=== PATIENT | female | born 1950 | race Caucasian/White ===

== ENCOUNTER 2016-03-08 16:48 | Observation (INO) | payer MEDICARE, MEDICAID ==
[~2016-03-08] VITALS: Ht 165.1 cm; Wt 72.8 kg
[2016-03-08] VITALS (11 sets, daily range): BP systolic 189–238; RESP 16; TEMP 97.9; Ht 165.1 cm; Wt 72.8 kg
[2016-03-08] MEDS ORDERED: DEXTROSE 50% 50 ML ONE (18:28)
[2016-03-08] MEDS ORDERED: humuLIN REG INSULIN ONE (18:28)
[2016-03-08] MEDS ORDERED: NITROGLYCERIN/D5W 250 ML IV ONE (18:38)
[2016-03-08] MEDS ORDERED: SODIUM CHLORIDE 0.9% 1,000 ML ONE (18:40)
[2016-03-08] MEDS ORDERED: CALCIUM GLUCONATE 1,000 MG in SODIUM CHLORIDE 0.9% 100 ML IV ONE (19:15)
[2016-03-08] MEDS: NITROGLYCERIN 50 MG/250 ML 250 ML IV SCH (20:45)
[2016-03-08] MEDS ORDERED: DEXTROSE 50% SYRINGE 50 ML IV PRN (21:00)
[2016-03-08] MEDS ORDERED: SALINE FLUSH 10 ML FLUSH PRN (21:00)
[2016-03-08] MEDS ORDERED: GLUCAGON 1 MG VIAL IM PRN (21:00)
[2016-03-08] MEDS ORDERED: Atorvastatin 20 MG TAB PO SCH (21:00)
[2016-03-08] MEDS ORDERED: QUETIAPINE XR 300 MG TAB PO SCH (21:00)
[2016-03-08] MEDS ORDERED: ONDANSETRON 4 MG VIAL IV PUSH PRN (21:00)
[2016-03-08] MEDS ORDERED: Furosemide 40 MG/4 ML VIAL IV ONE (21:00)
[2016-03-08] MEDS ORDERED: SODIUM CHLORIDE 0.9% 1,000 ML IV PRN ×2 (22:30)
[2016-03-08] MEDS ORDERED: ONDANSETRON 4 MG VIAL IV PRN ×2 (22:30)
[2016-03-08] MEDS ORDERED: SODIUM CHLORIDE 0.9% 1,000 ML IV SCH ×2 (22:30)
[2016-03-08] MEDS ORDERED: ALBUMIN HUMAN 25GM (25%) 100 ML IV PRN (22:30)
[2016-03-08] MEDS: clonazePAM 0.5 MG TAB PO SCH (23:03)
[2016-03-08] MEDS: DULoxetine 30 MG CAP PO SCH (23:04)
[2016-03-08] MEDS: CARVEDILOL 25 MG TAB PO SCH (23:04)
[2016-03-08] MEDS: amLODIPine 5 MG TAB PO SCH (23:04)
[2016-03-08] MEDS: SALINE FLUSH 10 ML FLUSH SCH (23:04)
[2016-03-09] VITALS (17 sets, daily range): BP systolic 87–204; RESP 16–20; TEMP 97–98.2
[2016-03-09] MEDS: ALBUMIN HUMAN 25GM (25%) 100 ML IV PRN ×2 (02:17→02:47)
[2016-03-09] MEDS: NITROGLYCERIN 50 MG/250 ML 250 ML IV SCH (02:45)
[2016-03-09] MEDS ORDERED: SODIUM CHLORIDE 0.9% FLUSH BAG 500 ML IV SCH (06:00)
[2016-03-09] MEDS ORDERED: LEVOTHYROXINE 0.05 MG TAB PO SCH (07:00)
[2016-03-09] MEDS: SALINE FLUSH 10 ML FLUSH SCH (08:31)
[2016-03-09] MEDS: CALCIUM ACETATE 667MG CAP PO SCH ×3 (08:32→17:26)
[2016-03-09] MEDS: DULoxetine 30 MG CAP PO SCH (08:32)
[2016-03-09] MEDS: clonazePAM 0.5 MG TAB PO SCH (08:32)
[2016-03-09] MEDS: CARVEDILOL 25 MG TAB PO SCH (08:32)
[2016-03-09] MEDS: amLODIPine 5 MG TAB PO SCH (08:32)
[2016-03-09] MEDS ORDERED: Furosemide 40 MG TAB PO SCH (09:00)
[2016-03-09] MEDS ORDERED: ASPIRIN EC 81 MG TAB PO SCH (09:00)
[2016-03-09] MEDS ORDERED: ACETAMINOPHEN 325 MG TAB PO PRN (16:30)
[2016-03-15] MEDS ORDERED: CLONIDINE TRANSDERM SCH (09:00)
== END 2016-03-09 18:01 | disposition home or self-care (01) ==
LOC: ENRESERVTM → ENRESERVDT → ER 16:48 → ENPENDDIS 20:59 → EMR 20:59 → PCU2 21:50
PROVIDERS: ADMIT Family Medicine; ATTEND Family Medicine
CPT/HCPCS: 71010 ×2; 80053 ×2; 82947 ×2; 84132 ×2; 85025 ×2; 93005 ×2; 94799; 96365 ×2; 96366 ×2; 96375 ×2; 97799; 99219; 99285; G0378; J7050; P9047

== ENCOUNTER 2016-03-14 14:33 | Emergency (ER) | payer MEDICAID, MEDICARE ==
[2016-03-14] MEDS ORDERED: cloNIDine 0.1 MG TAB ONE ×2 (15:02→16:28)
[2016-03-14] MEDS ORDERED: LABETALOL 100 MG/20 ML VIAL ONE (15:02)
== END 2016-03-14 20:11 ==
LOC: ER 14:33
CPT/HCPCS: 36415; 71010; 80053; 82553; 84484; 85025; 85610; 85730; 93005; 96374

== ENCOUNTER 2016-04-02 21:20 | Inpatient (IN) | payer MEDICARE, MEDICAID ==
[~2016-04-02] VITALS: Ht 162.6 cm; Wt 72.9 kg
[2016-04-02] MEDS ORDERED: KETOROLAC 30 MG/ML VIAL ONE (22:28)
[2016-04-03] VITALS (7 sets, daily range): BP systolic 123–232; RESP 16–20; TEMP 97.3–98.3
[2016-04-03] MEDS ORDERED: NEB-ALBUTEROL 2.5 MG/3 ML INH ONE (00:12)
[2016-04-03] MEDS ORDERED: humuLIN REG INSULIN ONE (00:22)
[2016-04-03] MEDS ORDERED: CALCIUM CHLORIDE 100 MG/ML SYR ONE (00:23)
[2016-04-03] MEDS ORDERED: DEXTROSE 50% 50 ML ONE (00:23)
[2016-04-03] MEDS ORDERED: SALINE FLUSH 10 ML FLUSH PRN (01:15)
[2016-04-03] MEDS ORDERED: BISACODYL EC 5 MG TAB PO PRN (01:15)
[2016-04-03] MEDS ORDERED: BISACODYL 10 MG SUPP RECTAL PRN (01:15)
[2016-04-03] MEDS ORDERED: MAG HYDROX 30 ML UDC PO PRN (01:15)
[2016-04-03] MEDS ORDERED: ACETAMINOPHEN 325 MG TAB PO PRN (01:15)
[2016-04-03] MEDS ORDERED: ALU/MAG/SIM 30 ML UDC PO PRN (01:15)
[2016-04-03] MEDS ORDERED: GLUCAGON 1 MG VIAL IM PRN (01:30)
[2016-04-03] MEDS: DEXTROSE 50% SYRINGE 50 ML IV PRN ×2 (03:23→03:32)
[2016-04-03] MEDS: SODIUM CHLORIDE 0.9% FLUSH BAG 500 ML IV SCH (07:29)
[2016-04-03] MEDS: FAMOTIDINE 20 MG TAB PO SCH ×2 (08:49→20:45)
[2016-04-03] MEDS: SALINE FLUSH 10 ML FLUSH SCH ×2 (08:49→20:45)
[2016-04-03] MEDS: ENOXAPARIN 30 MG/0.3 ML SYR SUBQ SCH (08:50)
[2016-04-03] MEDS ORDERED: clonazePAM 0.5 MG TAB PO SCH (12:30)
[2016-04-03] MEDS ORDERED: DUONEB INH PRN (12:30)
[2016-04-03] MEDS ORDERED: NEB-ALBUTEROL 2.5 MG/3 ML INH PRN (12:30)
[2016-04-03] MEDS ORDERED: ALPRAZOLAM 0.25 MG TAB PO PRN (12:30)
[2016-04-03] MEDS ORDERED: ONDANSETRON 4 MG TAB PO PRN (12:30)
[2016-04-03] MEDS: Furosemide 40 MG TAB PO SCH (13:33)
[2016-04-03] MEDS: ASPIRIN EC 81 MG TAB PO SCH (13:33)
[2016-04-03] MEDS: CHOLECALCIFEROL 5,000 UNITS CAP PO SCH (13:33)
[2016-04-03] MEDS: VORTIOXETINE 5 MG PO SCH (13:33)
[2016-04-03] MEDS: amLODIPine 5 MG TAB PO SCH ×2 (13:33→20:45)
[2016-04-03] MEDS ORDERED: CALCIUM ACETATE 667MG CAP PO SCH ×2 (17:00→21:00)
[2016-04-03] MEDS: CALCIUM ACETATE 667MG CAP PO SCH (17:24)
[2016-04-03] MEDS ORDERED: AZITHROMYCIN 500 MG in SODIUM CHLORIDE 0.9% 250 ML IV ONE (19:25)
[2016-04-03] MEDS: CARVEDILOL 25 MG TAB PO SCH (20:45)
[2016-04-03] MEDS: FAMOTIDINE 40 MG TAB PO SCH (20:45)
[2016-04-03] MEDS: QUETIAPINE XR 300 MG TAB PO SCH (20:45)
[2016-04-03] MEDS: DULoxetine 30 MG CAP PO SCH (20:45)
[2016-04-03] MEDS: Atorvastatin 20 MG TAB PO SCH (20:45)
[2016-04-03] MEDS: CEFTRIAXONE 1 GM in SODIUM CHLORIDE 0.9% 50 ML IV SCH (20:47)
[2016-04-03] MEDS ORDERED: DULoxetine 30 MG CAP PO SCH (21:00)
[2016-04-04 03:36] VITALS: BP_SYST 143; RESP 16; TEMP 98.2
[2016-04-04] MEDS: LEVOTHYROXINE 0.05 MG TAB PO SCH (06:05)
[2016-04-04] MEDS: SODIUM CHLORIDE 0.9% FLUSH BAG 500 ML IV SCH (06:06)
[2016-04-04 07:29] VITALS: BP_SYST 165; RESP 18; TEMP 98
[2016-04-04] MEDS: CARVEDILOL 25 MG TAB PO SCH ×2 (08:21→20:08)
[2016-04-04] MEDS: ASPIRIN EC 81 MG TAB PO SCH (08:21)
[2016-04-04] MEDS: DULoxetine 30 MG CAP PO SCH (08:22)
[2016-04-04] MEDS: amLODIPine 5 MG TAB PO SCH ×2 (08:22→20:09)
[2016-04-04] MEDS: CALCIUM ACETATE 667MG CAP PO SCH ×3 (08:22→17:16)
[2016-04-04] MEDS: FAMOTIDINE 20 MG TAB PO SCH ×2 (08:22→21:00)
[2016-04-04] MEDS: Furosemide 40 MG TAB PO SCH (08:22)
[2016-04-04] MEDS: VORTIOXETINE 5 MG PO SCH (08:22)
[2016-04-04] MEDS: CHOLECALCIFEROL 5,000 UNITS CAP PO SCH (08:22)
[2016-04-04] MEDS: clonazePAM 0.5 MG TAB PO SCH (08:23)
[2016-04-04] MEDS: CEFTRIAXONE 1 GM in SODIUM CHLORIDE 0.9% 50 ML IV SCH (08:23)
[2016-04-04] MEDS: SALINE FLUSH 10 ML FLUSH SCH ×2 (08:23→20:07)
[2016-04-04] MEDS: ENOXAPARIN 30 MG/0.3 ML SYR SUBQ SCH (08:23)
[2016-04-04] MEDS ORDERED: clonazePAM 0.5 MG TAB PO SCH (09:00)
[2016-04-04] MEDS: AZITHROMYCIN 250 MG in SODIUM CHLORIDE 0.9% 250 ML IV SCH (09:04)
[2016-04-04] MEDS ORDERED: ALBUMIN HUMAN 25GM (25%) 100 ML IV PRN (09:05)
[2016-04-04] MEDS ORDERED: SODIUM CHLORIDE 0.9% 1,000 ML IV SCH (09:05)
[2016-04-04] MEDS ORDERED: SODIUM CHLORIDE 0.9% 1,000 ML IV PRN (09:05)
[2016-04-04 11:11] VITALS: BP_SYST 141; RESP 18; TEMP 98.1
[2016-04-04 16:00] VITALS: BP_SYST 146; RESP 18; TEMP 98.2
[2016-04-04 19:27] VITALS: BP_SYST 194; RESP 18; TEMP 97.8
[2016-04-04] MEDS: Atorvastatin 20 MG TAB PO SCH (20:08)
[2016-04-04] MEDS: FAMOTIDINE 40 MG TAB PO SCH (20:09)
[2016-04-04] MEDS: QUETIAPINE XR 300 MG TAB PO SCH (20:09)
[2016-04-04 23:50] VITALS: BP_SYST 162; RESP 18
[2016-04-05 02:17] VITALS: BP_SYST 195; RESP 18; TEMP 97.4
[2016-04-05] MEDS: LEVOTHYROXINE 0.05 MG TAB PO SCH (05:47)
[2016-04-05] MEDS: SODIUM CHLORIDE 0.9% FLUSH BAG 500 ML IV SCH (05:47)
[2016-04-05 07:43] VITALS: BP_SYST 192; RESP 18; TEMP 97.8
[2016-04-05] MEDS: ENOXAPARIN 30 MG/0.3 ML SYR SUBQ SCH (08:30)
[2016-04-05] MEDS: SALINE FLUSH 10 ML FLUSH SCH ×2 (08:31→21:06)
[2016-04-05] MEDS: CALCIUM ACETATE 667MG CAP PO SCH ×3 (08:31→17:08)
[2016-04-05] MEDS ORDERED: hePARIN 1,000 UNITS/ML (PORCINE) 10 ML ONE (09:00)
[2016-04-05] MEDS ORDERED: CLONIDINE TRANSDERM SCH (09:00)
[2016-04-05 12:08] VITALS: BP_SYST 210; RESP 20; TEMP 97.3
[2016-04-05] MEDS: ASPIRIN EC 81 MG TAB PO SCH (14:22)
[2016-04-05] MEDS: CHOLECALCIFEROL 5,000 UNITS CAP PO SCH (14:22)
[2016-04-05] MEDS: CEFTRIAXONE 1 GM in SODIUM CHLORIDE 0.9% 50 ML IV SCH (14:22)
[2016-04-05] MEDS: DULoxetine 30 MG CAP PO SCH (14:22)
[2016-04-05] MEDS: VORTIOXETINE 5 MG PO SCH (14:22)
[2016-04-05] MEDS: Furosemide 40 MG TAB PO SCH (14:23)
[2016-04-05] MEDS: CARVEDILOL 25 MG TAB PO SCH ×2 (14:23→21:06)
[2016-04-05] MEDS: amLODIPine 5 MG TAB PO SCH ×2 (14:23→21:06)
[2016-04-05 14:40] VITALS: BP_SYST 213; RESP 20; TEMP 97.3
[2016-04-05] MEDS: clonazePAM 0.5 MG TAB PO SCH (14:40)
[2016-04-05] MEDS: AZITHROMYCIN 250 MG in SODIUM CHLORIDE 0.9% 250 ML IV SCH (15:35)
[2016-04-05 15:42] VITALS: BP_SYST 186; RESP 18; TEMP 97.6
[2016-04-05 18:27] VITALS: Ht 162.6 cm; Wt 72.9 kg
[2016-04-05 20:00] VITALS: BP_SYST 196; RESP 20; TEMP 98.7
[2016-04-05] MEDS: FAMOTIDINE 40 MG TAB PO SCH (21:06)
[2016-04-05] MEDS: Atorvastatin 20 MG TAB PO SCH (21:06)
[2016-04-05] MEDS: QUETIAPINE XR 300 MG TAB PO SCH (21:06)
[2016-04-06] VITALS (8 sets, daily range): BP systolic 149–200; RESP 18–20; TEMP 97.2–98.5
[2016-04-06] MEDS: SODIUM CHLORIDE 0.9% FLUSH BAG 500 ML IV SCH (05:13)
[2016-04-06] MEDS: LEVOTHYROXINE 0.05 MG TAB PO SCH (06:02)
[2016-04-06] MEDS: SALINE FLUSH 10 ML FLUSH SCH ×2 (08:15→20:56)
[2016-04-06] MEDS: CEFTRIAXONE 1 GM in SODIUM CHLORIDE 0.9% 50 ML IV SCH (08:16)
[2016-04-06] MEDS: ENOXAPARIN 30 MG/0.3 ML SYR SUBQ SCH (08:17)
[2016-04-06] MEDS: amLODIPine 5 MG TAB PO SCH ×2 (08:17→20:55)
[2016-04-06] MEDS: ASPIRIN EC 81 MG TAB PO SCH (08:18)
[2016-04-06] MEDS: CARVEDILOL 25 MG TAB PO SCH ×2 (08:18→20:55)
[2016-04-06] MEDS: CHOLECALCIFEROL 5,000 UNITS CAP PO SCH (08:18)
[2016-04-06] MEDS: DULoxetine 30 MG CAP PO SCH (08:18)
[2016-04-06] MEDS: VORTIOXETINE 5 MG PO SCH (08:18)
[2016-04-06] MEDS: Furosemide 40 MG TAB PO SCH (08:18)
[2016-04-06] MEDS: CALCIUM ACETATE 667MG CAP PO SCH ×3 (08:18→18:36)
[2016-04-06] MEDS ORDERED: clonazePAM 0.5 MG TAB PO SCH ×2 (09:00)
[2016-04-06] MEDS: AZITHROMYCIN 250 MG in SODIUM CHLORIDE 0.9% 250 ML IV SCH (09:35)
[2016-04-06] MEDS ORDERED: MISSING DOSE XX ONE (11:45)
[2016-04-06] MEDS: ACETAMINOPHEN 325 MG TAB PO PRN (17:51)
[2016-04-06] MEDS: FAMOTIDINE 40 MG TAB PO SCH (20:55)
[2016-04-06] MEDS: Atorvastatin 20 MG TAB PO SCH (20:55)
[2016-04-06] MEDS: QUETIAPINE XR 300 MG TAB PO SCH (20:55)
[2016-04-07] MEDS: SODIUM CHLORIDE 0.9% FLUSH BAG 500 ML IV SCH (05:26)
[2016-04-07] MEDS: LEVOTHYROXINE 0.05 MG TAB PO SCH (05:26)
[2016-04-07] MEDS: ACETAMINOPHEN 325 MG TAB PO PRN (05:27)
[2016-04-07] MEDS: CALCIUM ACETATE 667MG CAP PO SCH ×2 (07:26→12:08)
[2016-04-07] MEDS: DULoxetine 30 MG CAP PO SCH (09:44)
[2016-04-07 12:01] VITALS: BP_SYST 141; RESP 18
[2016-04-07] MEDS: CEFTRIAXONE 1 GM in SODIUM CHLORIDE 0.9% 50 ML IV SCH (12:05)
[2016-04-07] MEDS: CHOLECALCIFEROL 5,000 UNITS CAP PO SCH (12:05)
[2016-04-07] MEDS: SALINE FLUSH 10 ML FLUSH SCH (12:05)
[2016-04-07] MEDS: clonazePAM 0.5 MG TAB PO SCH (12:06)
[2016-04-07] MEDS: VORTIOXETINE 5 MG PO SCH (12:06)
[2016-04-07] MEDS: Furosemide 40 MG TAB PO SCH (12:06)
[2016-04-07] MEDS: ASPIRIN EC 81 MG TAB PO SCH (12:06)
[2016-04-07] MEDS: amLODIPine 5 MG TAB PO SCH (12:06)
[2016-04-07] MEDS: CARVEDILOL 25 MG TAB PO SCH (12:06)
[2016-04-07] MEDS: ENOXAPARIN 30 MG/0.3 ML SYR SUBQ SCH (12:07)
[2016-04-07 13:25] VITALS: BP_SYST 169; RESP 18; TEMP 97.9
[2016-04-07 13:31] VITALS: BP_SYST 165; RESP 18; TEMP 97.6
[2016-04-07 14:16] VITALS: BP_SYST 127; RESP 18; TEMP 97.9
[2016-04-07 14:55] VITALS: BP_SYST 127; RESP 18; TEMP 97.9
[2016-04-07] MEDS ORDERED: hePARIN 1,000 UNITS/1 ML VIAL DIALYSIS ONE (16:22)
== END 2016-04-07 16:23 | DRG 640 ==
LOC: ENRESERVTM → CANRESERV → ENRESERVDT → ER 21:20 → ENPENDDIS 04-03 01:13 → EMR 04-03 01:13 → PCU 04-03 05:20 → 4NT 04-06 17:13
PROVIDERS: ADMIT Internal Medicine; ATTEND Internal Medicine
PROC: 5A1D60Z (ICD-10-PCS; principal; 2016-04-03)
DX: E87.5 Hyperkalemia (principal); N18.6 End stage renal disease; I13.2 Hypertensive heart and chronic kidney disease with heart failure and with stage 5 chronic kidney disease, or end stage renal disease; J18.9 Pneumonia, unspecified organism; E11.22 Type 2 diabetes mellitus with diabetic chronic kidney disease; I50.30 Unspecified diastolic (congestive) heart failure; J44.0 Chronic obstructive pulmonary disease with (acute) lower respiratory infection; J98.11 Atelectasis; I69.351 Hemiplegia and hemiparesis following cerebral infarction affecting right dominant side; R41.0 Disorientation, unspecified; T43.215A Adverse effect of selective serotonin and norepinephrine reuptake inhibitors, initial encounter; T42.4X5A Adverse effect of benzodiazepines, initial encounter; E83.52 Hypercalcemia; Z99.2 Dependence on renal dialysis; E78.5 Hyperlipidemia, unspecified; F31.9 Bipolar disorder, unspecified; E03.9 Hypothyroidism, unspecified; F41.9 Anxiety disorder, unspecified; Z91.19 Patient's noncompliance with other medical treatment and regimen; K21.9 Gastro-esophageal reflux disease without esophagitis; D64.9 Anemia, unspecified
CPT/HCPCS: 36415; 36600; 70450; 71010; 80048; 80053; 80069; 82553; 82607; 82803; 82947; 84439; 84443; 84484; 85025; 85610; 85730; 93005; 94640; 94799; 99232; 99233; 99239

== ENCOUNTER 2016-04-10 07:19 | Inpatient (IN) | payer MEDICARE, MEDICAID ==
[2016-04-10] VITALS (21 sets, daily range): BP systolic 91–173; RESP 10–19; TEMP 96.6–98.3; Ht 165.1 cm; Wt 69.8 kg
[~2016-04-10] VITALS: Ht 165.1 cm; Wt 69.8 kg
[2016-04-10] MEDS ORDERED: SODIUM CHLORIDE 0.9% 1,000 ML ONE (08:24)
[2016-04-10] MEDS ORDERED: BISACODYL 10 MG SUPP RECTAL PRN (11:35)
[2016-04-10] MEDS ORDERED: MAG HYDROX 30 ML UDC PO PRN (11:35)
[2016-04-10] MEDS ORDERED: BISACODYL EC 5 MG TAB PO PRN (11:35)
[2016-04-10] MEDS ORDERED: ALU/MAG/SIM 30 ML UDC PO PRN (11:35)
[2016-04-10] MEDS ORDERED: SALINE FLUSH 10 ML FLUSH PRN (11:35)
[2016-04-10] MEDS ORDERED: SODIUM CHLORIDE 0.9% 500 ML IV ONE (12:01)
[2016-04-10] MEDS ORDERED: DILAUDID 1 MG/ML AMP ONE (12:58)
[2016-04-10] MEDS ORDERED: SODIUM CHLORIDE 0.9% 1,000 ML IV SCH (15:10)
[2016-04-10] MEDS ORDERED: EPOETIN 4,000 UNIT VIAL IV SCH (15:10)
[2016-04-10] MEDS ORDERED: OPTIRAY 350 100 ML VIAL HMH IV ONE (17:55)
[2016-04-10] MEDS: FAMOTIDINE 20 MG INJ IV SCH (19:42)
[2016-04-10] MEDS: SALINE FLUSH 10 ML FLUSH SCH (19:42)
[2016-04-10] MEDS: DUONEB INH SCH (19:55)
[2016-04-11] VITALS (20 sets, daily range): BP systolic 125–190; RESP 10–25; TEMP 96.8–98.4
[2016-04-11] MEDS: SODIUM CHLORIDE 0.9% FLUSH BAG 500 ML IV SCH (06:00)
[2016-04-11] MEDS: DUONEB INH SCH ×3 (06:31→18:02)
[2016-04-11] MEDS: SALINE FLUSH 10 ML FLUSH SCH ×2 (08:15→20:07)
[2016-04-11] MEDS: FAMOTIDINE 20 MG INJ IV SCH ×2 (08:15→20:07)
[2016-04-11] MEDS ORDERED: ACETAMINOPHEN 325 MG TAB PO PRN (11:00)
[2016-04-11] MEDS ORDERED: DUONEB INH PRN (11:00)
[2016-04-11] MEDS ORDERED: clonazePAM 0.5 MG TAB PO SCH ×2 (11:11→11:12)
[2016-04-11] MEDS: DULoxetine 30 MG CAP PO SCH (12:33)
[2016-04-11] MEDS: LEVOTHYROXINE 0.05 MG TAB PO SCH (12:33)
[2016-04-11] MEDS: VORTIOXETINE 5 MG PO SCH (12:34)
[2016-04-11] MEDS: CHOLECALCIFEROL 5,000 UNITS CAP PO SCH (12:34)
[2016-04-11] MEDS: CALCIUM ACETATE 667MG CAP PO SCH ×2 (12:34→17:44)
[2016-04-11] MEDS: ONDANSETRON 4 MG VIAL IV PRN ×2 (18:23→20:06)
[2016-04-11] MEDS: Atorvastatin 20 MG TAB PO SCH (20:07)
[2016-04-11] MEDS: QUETIAPINE XR 300 MG TAB PO SCH (20:07)
[2016-04-11] MEDS: CARVEDILOL 25 MG TAB PO SCH (20:07)
[2016-04-12] VITALS (8 sets, daily range): BP systolic 132–214; RESP 16–20; TEMP 97–99.9
[2016-04-12] MEDS ORDERED: MISSING DOSE XX ONE (05:35)
[2016-04-12] MEDS: CARVEDILOL 25 MG TAB PO SCH ×2 (05:57→20:17)
[2016-04-12] MEDS: SODIUM CHLORIDE 0.9% FLUSH BAG 500 ML IV SCH (05:59)
[2016-04-12] MEDS: LEVOTHYROXINE 0.05 MG TAB PO SCH (06:21)
[2016-04-12] MEDS: DUONEB INH SCH ×4 (06:30→19:23)
[2016-04-12] MEDS: FAMOTIDINE 20 MG INJ IV SCH ×2 (08:47→20:17)
[2016-04-12] MEDS: SALINE FLUSH 10 ML FLUSH SCH ×2 (08:47→20:18)
[2016-04-12] MEDS: DULoxetine 30 MG CAP PO SCH (08:49)
[2016-04-12] MEDS: CHOLECALCIFEROL 5,000 UNITS CAP PO SCH (08:49)
[2016-04-12] MEDS: VORTIOXETINE 5 MG PO SCH (08:49)
[2016-04-12] MEDS: CALCIUM ACETATE 667MG CAP PO SCH ×3 (08:49→16:28)
[2016-04-12] MEDS ORDERED: clonazePAM 0.5 MG TAB PO SCH (09:00)
[2016-04-12] MEDS: Atorvastatin 20 MG TAB PO SCH (20:17)
[2016-04-12] MEDS: QUETIAPINE XR 300 MG TAB PO SCH (20:18)
[2016-04-13 03:14] VITALS: BP_SYST 159; RESP 16; TEMP 97.4
[2016-04-13] MEDS: SODIUM CHLORIDE 0.9% FLUSH BAG 500 ML IV SCH (05:26)
[2016-04-13] MEDS: LEVOTHYROXINE 0.05 MG TAB PO SCH (06:10)
[2016-04-13] MEDS: DUONEB INH SCH ×3 (07:00→19:00)
[2016-04-13] MEDS: FAMOTIDINE 20 MG INJ IV SCH (07:53)
[2016-04-13] MEDS: CALCIUM ACETATE 667MG CAP PO SCH ×3 (07:53→17:00)
[2016-04-13] MEDS: SALINE FLUSH 10 ML FLUSH SCH (07:53)
[2016-04-13] MEDS: VORTIOXETINE 5 MG PO SCH (07:53)
[2016-04-13] MEDS: DULoxetine 30 MG CAP PO SCH (07:53)
[2016-04-13] MEDS: CHOLECALCIFEROL 5,000 UNITS CAP PO SCH (07:53)
[2016-04-13] MEDS: CARVEDILOL 25 MG TAB PO SCH (07:53)
[2016-04-13 08:04] VITALS: BP_SYST 152; RESP 18; TEMP 99
[2016-04-13] MEDS ORDERED: clonazePAM 0.5 MG TAB PO SCH (09:00)
[2016-04-13 11:25] VITALS: BP_SYST 187; RESP 18; TEMP 98.6
[2016-04-13 15:35] VITALS: BP_SYST 138; RESP 16; TEMP 98.5
== END 2016-04-13 20:26 | DRG 811 ==
LOC: ENRESERVDT → ENRESERVTM → ER 08:41 → EMR 11:31 → ENPENDDIS 11:31 → PCU 13:33 → CCU 14:33 → 4THE 04-11 18:35
PROVIDERS: ADMIT Family Medicine; ATTEND Family Medicine
PROC: 5A1D00Z (ICD-10-PCS; principal; 2016-04-12)
DX: D62 Acute posthemorrhagic anemia (principal); N18.6 End stage renal disease; E46 Unspecified protein-calorie malnutrition; S36.892A Contusion of other intra-abdominal organs, initial encounter; E11.22 Type 2 diabetes mellitus with diabetic chronic kidney disease; I12.0 Hypertensive chronic kidney disease with stage 5 chronic kidney disease or end stage renal disease; E87.1 Hypo-osmolality and hyponatremia; I69.351 Hemiplegia and hemiparesis following cerebral infarction affecting right dominant side; W19.XXXA Unspecified fall, initial encounter; Y92.129 Unspecified place in nursing home as the place of occurrence of the external cause; F17.210 Nicotine dependence, cigarettes, uncomplicated; Z99.2 Dependence on renal dialysis; F20.9 Schizophrenia, unspecified; B19.20 Unspecified viral hepatitis C without hepatic coma; E78.5 Hyperlipidemia, unspecified; F41.9 Anxiety disorder, unspecified; Z85.528 Personal history of other malignant neoplasm of kidney; Z79.01 Long term (current) use of anticoagulants
CPT/HCPCS: 36415; 36430; 74176; 74177; 80053; 80069; 82140; 82274; 82947; 83690; 84439; 84443; 85014; 85018; 85025; 85610; 85730; 86850; 86900; 86901; 86923; 94640; 94799; 96361; 96374; 99233; 99239